=== PATIENT | male | born 1960 ===

== ENCOUNTER 2020-10-11 16:32 | Emergency (ER) | payer OTHER ==
[2020-10-11 16:43] VITALS: BP 184/92
[2020-10-11] MEDS ORDERED: ASPIRIN 325 MG TAB PO ONE (16:44)
[2020-10-11 17:12] LABS: Basophils % (Auto) 0.4 % (0.0-1.8); Eosinophils # (Auto) 0.1 K/mm3 (0.0-0.4); Eosinophils % (Auto) 2.1 % (0.0-4.3); Hematocrit 41.2 % (35.5-45.6); Hemoglobin 14.2 gm/dl (11.8-15.2); Lymphocytes # (Auto) 1.6 K/mm3 (1.2-5.4); Lymphocytes % (Auto) 36.3 % (13.4-35.0); Mean Corpuscular HGB Conc 34 % (32-34); Mean Corpuscular Volume 93 fl (84-94); Monocytes # (Auto) 0.4 K/mm3 (0.0-0.8); Monocytes % (Auto) 8.8 % (0.0-7.3); Platelet Count 196 K/mm3 (140-440); Red Blood Count 4.42 M/mm3 (3.65-5.03); Red Cell Distribution Width 14.7 % (13.2-15.2)
--- NOTE | 2020-10-11 17:17 | XRay Report ---
CHEST 2 VIEWS 1652 INDICATION / CLINICAL INFORMATION: CP COMPARISON: None available. FINDINGS: SUPPORT DEVICES: None. HEART / MEDIASTINUM: No significant abnormality. LUNGS / PLEURA: No significant pulmonary or pleural abnormality. No pneumothorax. ADDITIONAL FINDINGS: No significant additional findings. IMPRESSION: No significant acute abnormality Signer Name: Olivier Hernandez MD Signed: 10/11/2020 5:13 PM Workstation Name: [id number]
[2020-10-11 17:32] LABS: Alanine Aminotransferase 20 units/L (7-56); BUN/Creatinine Ratio 19; Blood Urea Nitrogen 15 mg/dL (9-20); Calcium 8.9 mg/dL (8.4-10.2); Hemolysis Index 20
--- NOTE | 2020-10-11 20:56 | Event Note ---
ED Screening Note Date of service: 10/11/20 Time: 16:50 ED Screening Note: Patient complains of substernal chest pain without shortness of breath x 1 week This initial assessment/diagnostic orders/clinical plan/treatment(s) is/are subject to change based on patients health status, clinical progression and re- assessment by fellow clinical providers in the ED. Further treatment and workup at subsequent clinical providers discretion. Patient/guardian urged not to elope from the ED as their condition may be serious if not clinically assessed and managed. Initial orders include: Labs EKG Chest x-ray
--- NOTE | 2020-10-12 11:53 | Electrocardiograph Report ---
[facility] Test Date: 2020-10-11 Test Time: 16:45:08 Pat Name: TWYLA HAHN Department: Room: Gender: M [employer]igator: : [id number] Requested By: EWELINA CELESTE Order Number: [id number] Reading MD: Milton Presley Measurements Intervals [place] Rate: 78 P: 38 AK: 203 QRS: 46 QRSD: 90 T: 11 QT: 404 QTc: 442 Interpretive Statements Sinus rhythm Atrial premature complexes Probable left atrial enlargement Anteroseptal infarct, age indeterminate Nonspecific T wave abnormality No previous ECG available for comparison Electronically Signed On 10-12-2020 11:52:57 EDT by Milton Presley
== END 2020-10-12 02:26 | disposition left against medical advice (07) ==
LOC: ED 16:32
DX: R07.9 Chest pain, unspecified (principal); R06.02 Shortness of breath; Z53.21 Procedure and treatment not carried out due to patient leaving prior to being seen by health care provider
CPT/HCPCS: 36415; 71046; 80053; 84484; 85025; 93005